=== PATIENT | female | born 1985 | race Caucasian/White ===

== ENCOUNTER 2017-01-11 11:13 | Emergency (ER) | payer BC ==
[~2017-01-11] VITALS: Ht 165.1 cm; Wt 118.2 kg
--- NOTE | ~2017-01-11 | CR127 ---
[facility]. [facility] A Service of [facility] RADIOLOGY TEXT RESULTS PATIENT: RAGINI CUEVAS LOCATION: SED : 83 UNIT #: [id number] AGE: [address]: BEKA PAREDES SEX: F ORDER DR: [id number] [address] [address] [id number] E MR#: [id number] Acc #: [id number] NAME: RAGINI CUEVAS : 1985 SEX: F STUDY DATE/TIME: 01/11/2017 11:41 UNIT: SED ROOM: STUDY DESCRIPTION: CR Foot Complete Min 3 View Rt Attending Physician: Beka Paredes Ordering Physician: Beka Paredes Primary Care Physician: Maria E Hess MEDICAL IMAGING REPORT This report is preliminary unless electronic signature is present. EXAM Right foot INDICATIONS Right foot pain. Pain along the lateral foot with swelling. FINDINGS Three views of the right foot without comparison. There is no acute fracture or dislocation. Alignment is anatomic. There is a right partite sesamoid along the medial aspect of the first metatarsophalangeal joint. IMPRESSION No acute findings. Dictated by... Isidoro Herrera M.D. THIS IS AN ELECTRONICALLY VERIFIED REPORT Isidoro Herrera M.D. at 01/11/2017 3:56 PM EMILEE/daniel TD: 01/11/2017 15:18 JOB #: [id number] MEDICAL IMAGING REPORT Page 1 of 1
[~2017-01-11 11:13] MED LIST: APIDRA (NF100 UNITS/ SUBQ; CALCIUM + VIT1 EACH PO; LANTUS100 UNITS/ SUBQ; MULTI VITAMIN1 EACH PO; PRENATAL1 TA1 PO; VITAMIN B 12 PO; VOLTAREN50 MG PO
[2017-01-11] MEDS ORDERED: NO MEDICATIONS (11:25)
== END 2017-01-11 13:09 | disposition home or self-care (01) ==
LOC: SED 11:13
DX: S93.601A Unspecified sprain of right foot, initial encounter (principal); E11.9 Type 2 diabetes mellitus without complications; F17.210 Nicotine dependence, cigarettes, uncomplicated; Z98.890 Other specified postprocedural states; Z88.0 Allergy status to penicillin; Z88.8 Allergy status to other drugs, medicaments and biological substances; X50.9XXA Other and unspecified overexertion or strenuous movements or postures, initial encounter; Y92.009 Unspecified place in unspecified non-institutional (private) residence as the place of occurrence of the external cause
CPT/HCPCS: 29540; 73630; 99283